=== PATIENT | male | born 1995 | race Hispanic/Latino ===

== ENCOUNTER 2017-05-27 12:45 | Emergency (ER) | payer MEDICAID ==
[2017-05-27 13:34] VITALS: BMI 27.3
[2017-05-27 13:55] LABS: BASO # 0.02 K/mm3 (0.0-2.0); BASO % 0.3 % (0.0-3.0); EOS % 0.5 % (1.5-5.0); GRAN # 4.51 (1.4-6.5); GRAN % 60.8 % (50.0-68.0); HEMATOCRIT 46.7 % (42.0-52.0); LYMPH # 2.2 (1.2-3.4); LYMPH % 30.1 % (22.0-35.0); MEAN CORPUSCULAR HEMOGLOBIN 31.4 pg (25.0-35.0); MEAN CORPUSCULAR HGB CONC 34.9 g/dl (31.0-37.0); MEAN PLATELET VOLUME 10.1 fl (7.0-11.0); MONO # 0.6 (0.1-0.6); MONO % 8.3 % (1.0-6.0); RED CELL DISTRIBUTION WIDTH 13.2 % (11.5-14.5); WHITE BLOOD COUNT 7.4 10^3/ul (4.5-11.0)
[2017-05-27 14:04] LABS: ALB/GLOB RATIO 1.5 (1.1-1.8); ALKALINE PHOSPHATASE 69 U/L (38-126); ALT/SGPT 39 U/L (7-56); AST/SGOT 24 U/L (17-59); BILIRUBIN,TOTAL 1.1 mg/dL (0.2-1.3); BLOOD UREA NITROGEN 13 mg/dL (7-21); CALCIUM 10.4 mg/dL (8.4-10.5); CARBON DIOXIDE 23 mmol/L (21-33); CHLORIDE 101 mmol/L (98-107); GFR AFRICAN-AMERICAN > 60; GLUCOSE,RANDOM 103 mg/dL (70-110); POTASSIUM 4.3 mmol/L (3.6-5.0); SODIUM 142 mmol/L (132-148); TOTAL PROTEIN 8.5 g/dL (5.8-8.3)
--- NOTE | 2017-05-27 14:37 | RAD ---
HISTORY: PES eval COMPARISON: No prior. FINDINGS: LUNGS: No active pulmonary disease. PLEURA: No significant pleural effusion identified, no pneumothorax apparent. CARDIOVASCULAR: Normal. OSSEOUS STRUCTURES: No significant abnormalities. VISUALIZED UPPER ABDOMEN: Normal. OTHER FINDINGS: None. IMPRESSION: No active disease.
[2017-05-27 15:12] LABS: URINE BILIRUBIN SMALL (NEGATIVE); URINE BLOOD NEGATIVE (NEGATIVE); URINE GLUCOSE (UA) NEGATIVE (NEGATIVE); URINE KETONE 15 mg/dL (NEGATIVE); URINE LEUKOCYTE ESTERASE NEGATIVE Leu/uL (NEGATIVE); URINE PROTEIN TRACE mg/dL (<30 mg/dL); URINE UROBILINOGEN 0.2 E.U./dL (<1 E.U./dL)
[2017-05-27 15:28] LABS: URINE APPEARANCE CLEAR (CLEAR); URINE COLOR YELLOW (YELLOW)
[2017-05-27 16:18] LABS: URINE BACTERIA MOD (NEG); URINE EPITHELIAL CELLS 0 - 2 /hpf (0-5); URINE RBC 0 - 2 /hpf (0-2); URINE WBC 0 - 2 /hpf (0-6)
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
--- NOTE | 2017-05-27 21:50 | CARD ---
APPROVED REPORT EKG Measurement Heart [id number] [place] 140P-45 [id number] <Conclusion> Unusual P axis, possible ectopic atrial rhythm Abnormal QRS-T angle, consider primary T wave abnormality Abnormal ECG
[2017-05-28 06:30] VITALS: RESP 18; TEMP 97.8
[2017-05-28 08:38] VITALS: BP 125/85; PULSE 98; O2SAT 97
--- NOTE | 2017-05-28 17:11 | CP.PCM.PCO ---
Addendum Addendum: 05/28/17 17:10 this comic writer attempted to speak to the pt, pt was deeply sleeping s/p IM, pt was screened and was accepted by [facility].
--- NOTE | 2017-05-28 22:08 | CARD ---
APPROVED REPORT EKG Measurement Heart [id number] <Conclusion> Unusual P axis, possible ectopic atrial rhythm Abnormal ECG
== END 2017-05-28 09:02 | disposition short-term general hospital (02) ==
LOC: ED 12:45
DX: F25.9 Schizoaffective disorder, unspecified (principal)
CPT/HCPCS: 71010; 80053; 80320; 80324; 80329; 80345; 80346; 80349; 80353; 80358; 80361; 81001; 83992; 85025; 90791; 93005; 96372; 99285; J1630; J2060

== ENCOUNTER 2017-09-26 21:37 | Inpatient (IN) | payer MEDICAID ==
[2017-09-26 21:37] VITALS: BMI 27.3
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
[2017-09-26 22:51] LABS: BASO # 0.02 K/mm3 (0.0-2.0); BASO % 0.2 % (0.0-3.0); EOS # 0.3 (0.0-0.7); EOS % 3.1 % (1.5-5.0); GRAN # 3.48 (1.4-6.5); GRAN % 38.2 % (50.0-68.0); HEMOGLOBIN 15.8 g/dL (14.0-18.0); LYMPH # 4.4 (1.2-3.4); LYMPH % 48.4 % (22.0-35.0); MEAN CELL VOLUME 94.1 fl (80.0-105.0); MEAN CORPUSCULAR HEMOGLOBIN 32.3 pg (25.0-35.0); MEAN CORPUSCULAR HGB CONC 34.3 g/dl (31.0-37.0); MEAN PLATELET VOLUME 10.2 fl (7.0-11.0); MONO # 0.9 (0.1-0.6); MONO % 10.1 % (1.0-6.0); RBC 4.89 10^6/uL (3.5-6.1); RED CELL DISTRIBUTION WIDTH 13.5 % (11.5-14.5); WHITE BLOOD COUNT 9.1 10^3/ul (4.5-11.0)
[2017-09-26 23:01] LABS: ALB/GLOB RATIO 1.3 (1.1-1.8); ALBUMIN 4.5 g/dL (3.0-4.8); ALT/SGPT 36 U/L (7-56); AST/SGOT 33 U/L (17-59); BLOOD UREA NITROGEN 12 mg/dL (7-21); CALCIUM 10.4 mg/dL (8.4-10.5); GFR AFRICAN-AMERICAN > 60; GFR NON-AFRICAN AMERICAN > 60
[2017-09-26 23:02] LABS: ACETAMINOPHEN < 10.0 ug/ml (10.0-20.0); SALICYLATE < 1 mg/dL (2.0-20.0)
[2017-09-27 00:29] LABS: URINE BILIRUBIN NEGATIVE (NEGATIVE); URINE BLOOD NEGATIVE (NEGATIVE); URINE GLUCOSE (UA) NEGATIVE (NEGATIVE); URINE LEUKOCYTE ESTERASE NEGATIVE Leu/uL (NEGATIVE); URINE PROTEIN NEGATIVE mg/dL (<30 mg/dL); URINE UROBILINOGEN 0.2 E.U./dL (<1 E.U./dL)
[2017-09-27 00:30] LABS: URINE APPEARANCE CLEAR (CLEAR); URINE COLOR YELLOW (YELLOW)
[2017-09-27 00:44] LABS: BARBITURATES, UR NEGATIVE (NEGATIVE); BENZODIAZEPINES, UR NEGATIVE (NEGATIVE); OPIATES, UR NEGATIVE (NEGATIVE); PHENCYCLIDINE, UR NEGATIVE (NEGATIVE)
[2017-09-27] MEDS ORDERED: Divalproex 250 mg DR (BID formulation) PO STA (01:40)
[2017-09-27] MEDS ORDERED: Magnesium Hydroxide Susp 30 ml UD PO PRN ×2 (01:55→02:45)
[2017-09-27] MEDS ORDERED: Alum-Mag Hydrox-Simethicone Susp (30 mL) PO PRN ×2 (01:55→02:45)
[2017-09-27] MEDS ORDERED: DiphenhydrAMINE 50 mg/ml Inj IM PRN ×2 (01:58→13:15)
--- NOTE | 2017-09-27 04:41 | PCM.BM ---
<Ana De La O - Last Filed: 09/27/17 04:38> Treatment Plan Problems - Problems identified on initial assessmt High Risk: Violence Date Initiated: 09/27/17 Time Initiated: 01:45 Assessment reference: NA Status: Active Altered Thought Process Date Initiated: 09/27/17 Time Initiated: 01:45 Assessment reference: NA Status: Active Medication nonadherence Date Initiated: 09/27/17 Time Initiated: :45 Assessment reference: NA Status: Active Defensive Coping Date Initiated: 09/27/17 Time Initiated: :45 Assessment reference: NA Status: Active Treatment assets and liabiliti Patient Assests: self-reliant, ADL independent, physically healthy Patient Liabilities: poor support system, relationship conflicts - Milieu Protocol Maintain good personal hygiene: daily Encourage regular showers, daily Remind patient to perform daily oral care, daily Assist patient to perform ADL's Conduct patient checks and document Observation sheet: Q15 minutes Maintain personal safety: every shift Educate patient to report safety concerns to staff, every shift Monitor environment for contraband/sharps Medication safety: Monitor for expected outcome, potential side effects: every shift, Assess barriers to learning: every shift, Assess readiness for medication education: every shift Discharge/Continuing Care - Education Needs Education Needs: Patient Medication, Patient Diagnosis/Disease Process, Patient Coping Skills, Patient Anger Management skills, Patient Community resources, Patient Activities of Daily Living, Patient Nutrition, Patient Health Practices/ Safety, Patient Personal Hygiene/Grooming, Patient Aftercare Safety Plan - Discharge Discharge Criteria: Tolerates medication w/o severe side effects, Free of Suicidal thoughts, Free of Homicidal thoughts, Free of paranoid thoughts, Free of agitation, Normal sleep pattern, Ability to care for self <Arlet Ford - Last Filed: 09/27/17 10:58> - Diagnosis (1) Bipolar disorder Status: Acute Interventions: Psychoeducation Psychopharmacology/adjustment of medications as needed/ monitoring possible side effects Monitor blood level of mood stabilizers Evaluate pt on daily basis Compliance with medications and follow up appointments Suicide and homicide risk assessment and prevention, coping strategies, safety plan Relapse prevention Reduction of symptoms Improve functional status Family involvement As outpatient: cognitive behavioral therapy 09/27/17 10:58 <Christina Hernandez - Last Filed: 09/27/17 16:56> Family Contact Family involvement: Famliy/SO not involved Family contact: Patient declines to allow family contact at present
--- NOTE | 2017-09-27 08:10 | RAD ---
HISTORY: pes COMPARISON: 05/27/2017. FINDINGS: LUNGS: The lungs are well inflated and clear. PLEURA: No significant pleural effusion identified, no pneumothorax apparent. CARDIOVASCULAR: Normal. OSSEOUS STRUCTURES: No significant abnormalities. VISUALIZED UPPER ABDOMEN: Normal. OTHER FINDINGS: None. IMPRESSION: No active pulmonary disease.
[2017-09-27 08:26] LABS: GLUCOSE,FASTING 90 mg/dL (65-110); HDL CHOLESTEROL 36 mg/dL (29-60)
[2017-09-27 08:37] LABS: LDL CHOLESTEROL 82 mg/dL (0-129)
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
--- NOTE | 2017-09-27 10:01 | CARD ---
APPROVED REPORT EKG Measurement Heart [id number] ND [id number] [id number] <Conclusion> Sinus rhythm with premature supraventricular complexes Otherwise normal ECG
[2017-09-27] MEDS: Divalproex 250 mg DR (BID formulation) PO SCH ×2 (10:10→21:02)
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
[2017-09-28] MEDS: Pantoprazole 20 mg EC Tab PO SCH (06:49)
--- NOTE | 2017-09-28 09:32 | PCM.PYCHPN ---
Psychiatric Progress Note - Psychiatric Progress Note Patient seen today, length of contact: 25 min Problems Identified/Issues Discussed: I reviewed assessment and recent notes. I attempted to interview patient at bedside. He appears unkempt, preoccupied and disengaged. He is extremely reluctant to respond to my questioning though it is evident that he is awake. Flatly states "making me sick" but will not elaborate further even with repeat questioning. Patient doesn't appear to be in any distress. Patient does generally appear evasive, paranoid and irritable. Staff notes appear to confirm this, they indicate that patient has been oppositional and difficult. Has required redirection for intrusive and agitated behavior. Remains unpredictable with poor insight and judgment. Diagnostic Results: Schizoaffective Disorder Bipolar Type Learning Disorder unspecified Mental Status Examination - Cognitive Function Orientation: Person, Place, Situation, Time Attention: Poor Concentration: Poor - Mood Mood: Other ("making me sick") - Affect Affect: Other (irritable, unwilling to participate) - Formal Thought Process Formal Thought Process: Paranoia, Circumstantial - Suicidal Ideation Suicidal Ideation: No - Homicidal Ideation Homicidal Ideation: No Goal/Treatment Plan - Goal/Treatment Plan Progress Toward Problem(s) and Goals/Treatment Plan: c/w current tx and plan No new weekend labs thus far Vitals reviewed and noted below: Selected Entries 09/27/17 09/27/17 09/27/17 01:40 02:53 16:03 Temperature 98.2 F Pulse Rate 95 H 91 H Pulse Rate [ 95 H Brachial] Respiratory 16 Rate Blood Pressure 132/90 130/86
[2017-09-28] MEDS: Divalproex 250 mg DR (BID formulation) PO SCH ×2 (09:48→20:59)
[2017-09-29 06:57] VITALS: RESP 20
[2017-09-29] MEDS: Pantoprazole 20 mg EC Tab PO SCH (07:17)
--- NOTE | 2017-09-29 09:33 | PCM.PYCHPN ---
Psychiatric Progress Note - Psychiatric Progress Note Patient seen today, length of contact: 25 min Patient Chief Complaint: "doesn't like to take psychiatric medications because it makes it hard for me to see reality the way it is and that's why I like ambien and benzos" Problems Identified/Issues Discussed: I reviewed recent notes. I attempted to interview patient at bedside and was a little more successful getting some responses today. He still appears unkempt, internally preoccupied and oddly related. Abruptly states that he "doesn't like to take psychiatric medications because it makes it hard for me to see reality the way it is and that's why I like ambien and benzos". Patient also reports that his medications decrease his appetite "they take food out of my belly". Patient is disorganized and paranoid. Doesn't appear to be entirely reliable/ consistent regarding his responses. He denies hallucinations and he isn't responding to internal stimuli during my visit. Patient still seems evasive today but less irritable. Staff notes appear to confirm this, they indicate that patient was a little less disruptive yesterday. He was visible on the unit and tolerated a movie last night with others. Patient did refuse to complete social work assessment. In general he remains unpredictable with poor insight and judgment. Diagnostic Results: Schizoaffective Disorder Bipolar Type Learning Disorder unspecified Mental Status Examination - Cognitive Function Orientation: Person, Place, Situation, Time Attention: Poor Concentration: Poor - Mood Mood: Other ( "doesn't like to take psychiatric medications because it makes it hard for me to see reality the way it is and that's why I like ambien and benzos ") - Affect Affect: Other (internally preoccupied and oddly related) - Formal Thought Process Formal Thought Process: Paranoia, Circumstantial - Suicidal Ideation Suicidal Ideation: No - Homicidal Ideation Homicidal Ideation: No Goal/Treatment Plan - Goal/Treatment Plan Progress Toward Problem(s) and Goals/Treatment Plan: c/w current tx and plan No new weekend labs Vitals reviewed and noted below: Selected Entries 09/29/17 06:56 Temperature 97.9 F Pulse Rate 87 Respiratory 20 Rate Blood Pressure 121/79
[2017-09-29] MEDS: Divalproex 250 mg DR (BID formulation) PO SCH ×2 (10:07→21:17)
[2017-09-30 07:00] VITALS: TEMP 97.6
[2017-09-30] MEDS: Divalproex 250 mg DR (BID formulation) PO SCH ×3 (08:56→21:04)
[2017-09-30] MEDS: Pantoprazole 20 mg EC Tab PO SCH (08:56)
--- NOTE | 2017-09-30 14:08 | PCM.PYCHPN ---
Psychiatric Progress Note - Psychiatric Progress Note Patient seen today, length of contact: 25 min Patient Chief Complaint: "My father has been bullying me, he wants to mess up my life and make me miserable like him" Problems Identified/Issues Discussed: Patient is a 22 year old single male of average height and slim of build, neatly groomed and appearing his stated age seen today in treatment team. He has a long history of mental illness starting at age 14 with many hospitalizations and non compliance with follow up care. He lives with his father and is disabled due to his mental illness. Patient was initially seen in [facility] emergency room having been brought in by the police because of an altercation with his father. Patient was disorganized, labile, appeared to be responding to internal stimuli, laughing inappropriately and sexually preoccupied. He was last hospitalized at [place] involuntarily for 2 months and has been home and noncompliant with medication since. He signed voluntarily into the unit. Patient is seen in the common area of the unit. He is less irritable but is tangential and random in conversation. Indicates that he wants to sign a 48 hour notice but when it is explained to him that he must be screened by [facility] as a result of this decides to stay. He has been compliant with medication and when I talk with him about increasing the Risperdal and getting a depakote level to determine if this is in range he advises me to "bailey the medication up Ii need it". He is somewhat bizarre and labile, refuses cogentin because it "thins my blood". Denies side effects and AIMS exam is negative. Is planning to return to live with father at discharge. Medical Problems: Patient has had many inpatient admissions both involuntary and voluntary. He does not follow up with medications or treatment after hospitalizations. Diagnostic Results: Most Recent Lab Values WBC 9.1 10^3/ul (4.5-11.0) D 09/26/17 21:50 RBC 4.89 10^6/uL (3.5-6.1) 09/26/17 21:50 Hgb 15.8 g/dL (14.0-18.0) 09/26/17 21:50 Hct 46.0 % (42.0-52.0) 09/26/17 21:50 MCV 94.1 fl (80.0-105.0) D 09/26/17 21:50 MCH 32.3 pg (25.0-35.0) 09/26/17 21:50 MCHC 34.3 g/dl (31.0-37.0) 09/26/17 21:50 RDW 13.5 % (11.5-14.5) 09/26/17 21:50 Plt Count 303 10^3/uL (120.0-450.0) 09/26/17 21:50 MPV 10.2 fl (7.0-11.0) 09/26/17 21:50 Gran % 38.2 % (50.0-68.0) L 09/26/17 21:50 Lymph % (Auto) 48.4 % (22.0-35.0) H 09/26/17 21:50 [place] % (Auto) 10.1 % (1.0-6.0) H 09/26/17 21:50 Eos % (Auto) 3.1 % (1.5-5.0) 09/26/17 21:50 Baso % (Auto) 0.2 % (0.0-3.0) 09/26/17 21:50 Gran # 3.48 (1.4-6.5) 09/26/17 21:50 Lymph # (Auto) 4.4 (1.2-3.4) H 09/26/17 21:50 [place] # (Auto) 0.9 (0.1-0.6) H 09/26/17 21:50 Eos # (Auto) 0.3 (0.0-0.7) 09/26/17 21:50 Baso # (Auto) 0.02 K/mm3 (0.0-2.0) 09/26/17 21:50 Sodium 140 mmol/L (132-148) 09/26/17 21:50 Potassium 4.7 mmol/L (3.6-5.0) 09/26/17 21:50 Chloride 102 mmol/L (98-107) 09/26/17 21:50 Carbon Dioxide 28 mmol/L (21-33) 09/26/17 21:50 Anion Gap 15 (10-20) 09/26/17 21:50 BUN 12 mg/dL (7-21) 09/26/17 21:50 Creatinine 1.0 mg/dl (0.8-1.5) 09/26/17 21:50 Est GFR ( Amer) > 60 09/26/17 21:50 Est GFR (Non-Af Amer) > 60 09/26/17 21:50 Random Glucose 93 mg/dL (70-110) 09/26/17 21:50 Fasting Glucose 90 mg/dL (65-110) 09/27/17 07:30 Calcium 10.4 mg/dL (8.4-10.5) 09/26/17 21:50 Total Bilirubin 0.6 mg/dL (0.2-1.3) 09/26/17 21:50 AST 33 U/L (17-59) 09/26/17 21:50 ALT 36 U/L (7-56) 09/26/17 21:50 Alkaline Phosphatase 55 U/L (38-126) 09/26/17 21:50 Total Protein 8.0 g/dL (5.8-8.3) 09/26/17 21:50 Albumin 4.5 g/dL (3.0-4.8) 09/26/17 21:50 Globulin 3.5 gm/dL 09/26/17 21:50 Albumin/Globulin Ratio 1.3 (1.1-1.8) 09/26/17 21:50 Triglycerides 87 mg/dL (35-160) 09/27/17 07:30 Cholesterol 132 mg/dL (130-200) 09/27/17 07:30 LDL Cholesterol Direct 82 mg/dL (0-129) 09/27/17 07:30 HDL Cholesterol 36 mg/dL (29-60) 09/27/17 07:30 TSH 3rd Generation 0.75 mIU/mL (0.46-4.68) 09/27/17 07:30 Urine Color Yellow (YELLOW) 09/27/17 00:00 Urine Appearance Clear (CLEAR) 09/27/17 00:00 Urine pH 6.0 (4.7-8.0) 09/27/17 00:00 Ur Specific [place] 1.020 (1.005-1.035) 09/27/17 00:00 Urine Protein Negative mg/dL (<30 mg/dL) 09/27/17 00:00 Urine Glucose (UA) Negative mg/dL (NEGATIVE) 09/27/17 00:00 Urine Ketones Negative mg/dL (NEGATIVE) 09/27/17 00:00 Urine Blood Negative (NEGATIVE) 09/27/17 00:00 Urine Nitrate Negative (NEGATIVE) 09/27/17 00:00 Urine Bilirubin Negative (NEGATIVE) 09/27/17 00:00 Urine Urobilinogen 0.2 E.U./dL (<1 E.U./dL) 09/27/17 00:00 Ur Leukocyte Esterase Negative [place]/uL (NEGATIVE) 09/27/17 00:00 Salicylates < 1 mg/dL (2.0-20.0) L 09/26/17 21:50 Urine Opiates Screen Negative (NEGATIVE) 09/27/17 00:00 Urine Methadone Screen Negative (NEGATIVE) 09/27/17 00:00 Acetaminophen < 10.0 ug/ml (10.0-20.0) L 09/26/17 21:50 Ur Barbiturates Screen Negative (NEGATIVE) 09/27/17 00:00 Ur Phencyclidine Scrn Negative (NEGATIVE) 09/27/17 00:00 Ur Amphetamines Screen Negative (NEGATIVE) 09/27/17 00:00 U Benzodiazepines Scrn Negative (NEGATIVE) 09/27/17 00:00 U Oth Cocaine Metabols Negative (NEGATIVE) 09/27/17 00:00 U Cannabinoids Screen Negative (NEGATIVE) 09/27/17 00:00 Alcohol, Quantitative < 10 mg/dL (0-10) 09/26/17 21:50 RPR Nonreactive (NONREACTIVE) 09/27/17 07:30 Temp Pulse Resp BP Pulse Ox 97.6 F 60 20 121/76 100 09/30/17 06:59 09/30/17 06:59 09/30/17 06:59 09/30/17 06:59 09/27/17 01:00 Medication Change: Yes (Risperdal increased) Medical Record Reviewed: Yes Consults ordered or reviewed: Medical consult per Dr Hull reviewed thank you Mental Status Examination - Cognitive Function Orientation: Person, Place, Situation, Time Attention: Poor Concentration: Poor - Mood Mood: Other ( "doesn't like to take psychiatric medications because it makes it hard for me to see reality the way it is and that's why I like ambien and benzos ") - Affect Affect: Other (internally preoccupied and oddly related) - Formal Thought Process Formal Thought Process: Paranoia, Circumstantial - Suicidal Ideation Suicidal Ideation: No - Homicidal Ideation Homicidal Ideation: No Goal/Treatment Plan - Goal/Treatment Plan Progress Toward Problem(s) and Goals/Treatment Plan: Milieu/structure/supportive therapy Medical consult appreciated, see medical team note for more detailed info SW consultation for discharge plan and social issues Med management Family involvement Follow up on labs Will monitor closely evaluation for d/c planning Pt was educated about risk/benefits and alternatives of medications, coping strategies (safety plan, suicide prevention), relapse prevention, importance of follow up with psychiatrist and therapist, stay away from drugs/alcohol/smoking Medication Rationale: Depakote DR 500mg one po AM and HS for mood lability Risperdal 1mg one po AM and HS to be tapered up for psychosis Ambien 10mg one po HS for sleep PRNs of Ativan, Benedryl, and Haldol po and IM for agitation
[2017-09-30 22:45] VITALS: O2SAT 99
[2017-10-01] MEDS: Divalproex 250 mg DR (BID formulation) PO SCH ×2 (09:27→21:29)
[2017-10-01] MEDS: Pantoprazole 20 mg EC Tab PO SCH (09:28)
--- NOTE | 2017-10-01 13:23 | PCM.PYCHPN ---
Psychiatric Progress Note - Psychiatric Progress Note Patient seen today, length of contact: 25 min Patient Chief Complaint: "I want to go home" Problems Identified/Issues Discussed: Patient is a 22 year old single male of average height and slim of build, neatly groomed and appearing his stated age seen today in treatment team. He has a long history of mental illness starting at age 14 with many hospitalizations and non compliance with follow up care. He lives with his father and is disabled due to his mental illness. Patient was initially seen in [facility] emergency room having been brought in by the police because of an altercation with his father. Patient was disorganized, labile, appeared to be responding to internal stimuli, laughing inappropriately and sexually preoccupied. He was last hospitalized at [place] involuntarily for 2 months and has been home and noncompliant with medication since. He signed voluntarily into the unit. Patient is seen in the common area of the unit. Depakote level is .55 today. Depakote increased. He is not irritable today but is silly and overtly sexually preoccupied though he is easy to redirect. He continues delusional, and conversation is rambling. He requests to be discharged and when I do not agree signs a 48 hour hour notice. It was explained to him that the screeners will be called to assess him and patient understands. He has no insight and poor judgment, is unable to stay with a conversation or idea for long and is not able to tolerate groups. He is childlike at times. He continues to laugh inappropriately. He denies any side effects and AIMS exam is negative. Medical Problems: Patient is healthy Diagnostic Results: Most Recent Lab Values WBC 9.1 10^3/ul (4.5-11.0) D 09/26/17 21:50 RBC 4.89 10^6/uL (3.5-6.1) 09/26/17 21:50 Hgb 15.8 g/dL (14.0-18.0) 09/26/17 21:50 Hct 46.0 % (42.0-52.0) 09/26/17 21:50 MCV 94.1 fl (80.0-105.0) D 09/26/17 21:50 MCH 32.3 pg (25.0-35.0) 09/26/17 21:50 MCHC 34.3 g/dl (31.0-37.0) 09/26/17 21:50 RDW 13.5 % (11.5-14.5) 09/26/17 21:50 Plt Count 303 10^3/uL (120.0-450.0) 09/26/17 21:50 MPV 10.2 fl (7.0-11.0) 09/26/17 21:50 Gran % 38.2 % (50.0-68.0) L 09/26/17 21:50 Lymph % (Auto) 48.4 % (22.0-35.0) H 09/26/17 21:50 [place] % (Auto) 10.1 % (1.0-6.0) H 09/26/17 21:50 Eos % (Auto) 3.1 % (1.5-5.0) 09/26/17 21:50 Baso % (Auto) 0.2 % (0.0-3.0) 09/26/17 21:50 Gran # 3.48 (1.4-6.5) 09/26/17 21:50 Lymph # (Auto) 4.4 (1.2-3.4) H 09/26/17 21:50 [place] # (Auto) 0.9 (0.1-0.6) H 09/26/17 21:50 Eos # (Auto) 0.3 (0.0-0.7) 09/26/17 21:50 Baso # (Auto) 0.02 K/mm3 (0.0-2.0) 09/26/17 21:50 Sodium 140 mmol/L (132-148) 09/26/17 21:50 Potassium 4.7 mmol/L (3.6-5.0) 09/26/17 21:50 Chloride 102 mmol/L (98-107) 09/26/17 21:50 Carbon Dioxide 28 mmol/L (21-33) 09/26/17 21:50 Anion Gap 15 (10-20) 09/26/17 21:50 BUN 12 mg/dL (7-21) 09/26/17 21:50 Creatinine 1.0 mg/dl (0.8-1.5) 09/26/17 21:50 Est GFR ( Amer) > 60 09/26/17 21:50 Est GFR (Non-Af Amer) > 60 09/26/17 21:50 Random Glucose 93 mg/dL (70-110) 09/26/17 21:50 Fasting Glucose 90 mg/dL (65-110) 09/27/17 07:30 Calcium 10.4 mg/dL (8.4-10.5) 09/26/17 21:50 Total Bilirubin 0.6 mg/dL (0.2-1.3) 09/26/17 21:50 AST 33 U/L (17-59) 09/26/17 21:50 ALT 36 U/L (7-56) 09/26/17 21:50 Alkaline Phosphatase 55 U/L (38-126) 09/26/17 21:50 Total Protein 8.0 g/dL (5.8-8.3) 09/26/17 21:50 Albumin 4.5 g/dL (3.0-4.8) 09/26/17 21:50 Globulin 3.5 gm/dL 09/26/17 21:50 Albumin/Globulin Ratio 1.3 (1.1-1.8) 09/26/17 21:50 Triglycerides 87 mg/dL (35-160) 09/27/17 07:30 Cholesterol 132 mg/dL (130-200) 09/27/17 07:30 LDL Cholesterol Direct 82 mg/dL (0-129) 09/27/17 07:30 HDL Cholesterol 36 mg/dL (29-60) 09/27/17 07:30 TSH 3rd Generation 0.75 mIU/mL (0.46-4.68) 09/27/17 07:30 Urine Color Yellow (YELLOW) 09/27/17 00:00 Urine Appearance Clear (CLEAR) 09/27/17 00:00 Urine pH 6.0 (4.7-8.0) 09/27/17 00:00 Ur Specific [place] 1.020 (1.005-1.035) 09/27/17 00:00 Urine Protein Negative mg/dL (<30 mg/dL) 09/27/17 00:00 Urine Glucose (UA) Negative mg/dL (NEGATIVE) 09/27/17 00:00 Urine Ketones Negative mg/dL (NEGATIVE) 09/27/17 00:00 Urine Blood Negative (NEGATIVE) 09/27/17 00:00 Urine Nitrate Negative (NEGATIVE) 09/27/17 00:00 Urine Bilirubin Negative (NEGATIVE) 09/27/17 00:00 Urine Urobilinogen 0.2 E.U./dL (<1 E.U./dL) 09/27/17 00:00 Ur Leukocyte Esterase Negative [place]/uL (NEGATIVE) 09/27/17 00:00 Salicylates < 1 mg/dL (2.0-20.0) L 09/26/17 21:50 Urine Opiates Screen Negative (NEGATIVE) 09/27/17 00:00 Urine Methadone Screen Negative (NEGATIVE) 09/27/17 00:00 Acetaminophen < 10.0 ug/ml (10.0-20.0) L 09/26/17 21:50 Ur Barbiturates Screen Negative (NEGATIVE) 09/27/17 00:00 Ur Phencyclidine Scrn Negative (NEGATIVE) 09/27/17 00:00 Ur Amphetamines Screen Negative (NEGATIVE) 09/27/17 00:00 U Benzodiazepines Scrn Negative (NEGATIVE) 09/27/17 00:00 U Oth Cocaine Metabols Negative (NEGATIVE) 09/27/17 00:00 U Cannabinoids Screen Negative (NEGATIVE) 09/27/17 00:00 Alcohol, Quantitative < 10 mg/dL (0-10) 09/26/17 21:50 RPR Nonreactive (NONREACTIVE) 09/27/17 07:30 Temp Pulse Resp BP Pulse Ox 97.6 F 60 20 121/76 100 09/30/17 06:59 09/30/17 06:59 09/30/17 06:59 09/30/17 06:59 09/27/17 01:00 Temp Pulse Resp BP Pulse Ox 97.6 F 104 H 20 131/78 99 09/30/17 06:59 09/30/17 16:00 09/30/17 06:59 09/30/17 16:00 09/30/17 16:00 Medication Change: Yes (Increase Depakote to stabilize mood) Medical Record Reviewed: Yes Consults ordered or reviewed: Medical consult per Dr Hull reviewed thank you Mental Status Examination - Cognitive Function Orientation: Person, Place, Situation, Time Attention: Poor Concentration: Poor - Mood Mood: Other ( "doesn't like to take psychiatric medications because it makes it hard for me to see reality the way it is and that's why I like ambien and benzos ") - Affect Affect: Other (internally preoccupied and oddly related) - Formal Thought Process Formal Thought Process: Paranoia, Circumstantial - Suicidal Ideation Suicidal Ideation: No - Homicidal Ideation Homicidal Ideation: No Goal/Treatment Plan - Goal/Treatment Plan Progress Toward Problem(s) and Goals/Treatment Plan: Milieu/structure/supportive therapy Medical consult appreciated, see medical team note for more detailed info consultation for discharge plan and social issues Med management Family involvement Follow up on labs Will monitor closely evaluation for d/c planning Pt was educated about risk/benefits and alternatives of medications, coping strategies (safety plan, suicide prevention), relapse prevention, importance of follow up with psychiatrist and therapist, stay away from drugs/alcohol/smoking Medication Rationale: Depakote DR 500mg one po AM and HS for mood lability Risperdal 1mg one po AM and HS to be tapered up for psychosis Ambien 10mg one po HS for sleep PRNs of Ativan, Benedryl, and Haldol po and IM for agitation
[2017-10-02] MEDS: Divalproex 250 mg DR (BID formulation) PO SCH ×2 (09:43→21:10)
[2017-10-02] MEDS: Pantoprazole 20 mg EC Tab PO SCH (09:44)
--- NOTE | 2017-10-02 13:02 | PCM.PYCHPN ---
Psychiatric Progress Note - Psychiatric Progress Note Patient seen today, length of contact: 25 min Patient Chief Complaint: "I don't have to do anything anymore. I am going to medical [place] no matter what" Problems Identified/Issues Discussed: Patient is a 22 year old single male of average height and slim of build, neatly groomed and appearing his stated age seen today in treatment team. He has a long history of mental illness starting at age 14 with many hospitalizations and non compliance with follow up care. He lives with his father and is disabled due to his mental illness. Patient was initially seen in [facility] emergency room having been brought in by the police because of an altercation with his father. Patient was disorganized, labile, appeared to be responding to internal stimuli, laughing inappropriately and sexually preoccupied. He was last hospitalized at [place] involuntarily for 2 months and has been home and noncompliant with medication since. He signed voluntarily into the unit. Patient is seen in his room, as he refuses to come out. Patient was seen by the screener yesterday and is now under involuntary status awaiting a bed at [facility]. He is secluding in his room, however he comes out for meals and is taking his medications without difficulty. He continues labile, irritable and without insight. He is not able to tolerate much interpersonal contact and is sexually preoccupied and inappropriate in conversation. Medical Problems: Patient is healthy Diagnostic Results: Most Recent Lab Values WBC 9.1 10^3/ul (4.5-11.0) D 09/26/17 21:50 RBC 4.89 10^6/uL (3.5-6.1) 09/26/17 21:50 Hgb 15.8 g/dL (14.0-18.0) 09/26/17 21:50 Hct 46.0 % (42.0-52.0) 09/26/17 21:50 MCV 94.1 fl (80.0-105.0) D 09/26/17 21:50 MCH 32.3 pg (25.0-35.0) 09/26/17 21:50 MCHC 34.3 g/dl (31.0-37.0) 09/26/17 21:50 RDW 13.5 % (11.5-14.5) 09/26/17 21:50 Plt Count 303 10^3/uL (120.0-450.0) 09/26/17 21:50 MPV 10.2 fl (7.0-11.0) 09/26/17 21:50 Gran % 38.2 % (50.0-68.0) L 09/26/17 21:50 Lymph % (Auto) 48.4 % (22.0-35.0) H 09/26/17 21:50 [place] % (Auto) 10.1 % (1.0-6.0) H 09/26/17 21:50 Eos % (Auto) 3.1 % (1.5-5.0) 09/26/17 21:50 Baso % (Auto) 0.2 % (0.0-3.0) 09/26/17 21:50 Gran # 3.48 (1.4-6.5) 09/26/17 21:50 Lymph # (Auto) 4.4 (1.2-3.4) H 09/26/17 21:50 [place] # (Auto) 0.9 (0.1-0.6) H 09/26/17 21:50 Eos # (Auto) 0.3 (0.0-0.7) 09/26/17 21:50 Baso # (Auto) 0.02 K/mm3 (0.0-2.0) 09/26/17 21:50 Sodium 140 mmol/L (132-148) 09/26/17 21:50 Potassium 4.7 mmol/L (3.6-5.0) 09/26/17 21:50 Chloride 102 mmol/L (98-107) 09/26/17 21:50 Carbon Dioxide 28 mmol/L (21-33) 09/26/17 21:50 Anion Gap 15 (10-20) 09/26/17 21:50 BUN 12 mg/dL (7-21) 09/26/17 21:50 Creatinine 1.0 mg/dl (0.8-1.5) 09/26/17 21:50 Est GFR ( Amer) > 60 09/26/17 21:50 Est GFR (Non-Af Amer) > 60 09/26/17 21:50 Random Glucose 93 mg/dL (70-110) 09/26/17 21:50 Fasting Glucose 90 mg/dL (65-110) 09/27/17 07:30 Calcium 10.4 mg/dL (8.4-10.5) 09/26/17 21:50 Total Bilirubin 0.6 mg/dL (0.2-1.3) 09/26/17 21:50 AST 33 U/L (17-59) 09/26/17 21:50 ALT 36 U/L (7-56) 09/26/17 21:50 Alkaline Phosphatase 55 U/L (38-126) 09/26/17 21:50 Total Protein 8.0 g/dL (5.8-8.3) 09/26/17 21:50 Albumin 4.5 g/dL (3.0-4.8) 09/26/17 21:50 Globulin 3.5 gm/dL 09/26/17 21:50 Albumin/Globulin Ratio 1.3 (1.1-1.8) 09/26/17 21:50 Triglycerides 87 mg/dL (35-160) 09/27/17 07:30 Cholesterol 132 mg/dL (130-200) 09/27/17 07:30 LDL Cholesterol Direct 82 mg/dL (0-129) 09/27/17 07:30 HDL Cholesterol 36 mg/dL (29-60) 09/27/17 07:30 TSH 3rd Generation 0.75 mIU/mL (0.46-4.68) 09/27/17 07:30 Urine Color Yellow (YELLOW) 09/27/17 00:00 Urine Appearance Clear (CLEAR) 09/27/17 00:00 Urine pH 6.0 (4.7-8.0) 09/27/17 00:00 Ur Specific [place] 1.020 (1.005-1.035) 09/27/17 00:00 Urine Protein Negative mg/dL (<30 mg/dL) 09/27/17 00:00 Urine Glucose (UA) Negative mg/dL (NEGATIVE) 09/27/17 00:00 Urine Ketones Negative mg/dL (NEGATIVE) 09/27/17 00:00 Urine Blood Negative (NEGATIVE) 09/27/17 00:00 Urine Nitrate Negative (NEGATIVE) 09/27/17 00:00 Urine Bilirubin Negative (NEGATIVE) 09/27/17 00:00 Urine Urobilinogen 0.2 E.U./dL (<1 E.U./dL) 09/27/17 00:00 Ur Leukocyte Esterase Negative [place]/uL (NEGATIVE) 09/27/17 00:00 Salicylates < 1 mg/dL (2.0-20.0) L 09/26/17 21:50 Urine Opiates Screen Negative (NEGATIVE) 09/27/17 00:00 Urine Methadone Screen Negative (NEGATIVE) 09/27/17 00:00 Acetaminophen < 10.0 ug/ml (10.0-20.0) L 09/26/17 21:50 Ur Barbiturates Screen Negative (NEGATIVE) 09/27/17 00:00 Ur Phencyclidine Scrn Negative (NEGATIVE) 09/27/17 00:00 Ur Amphetamines Screen Negative (NEGATIVE) 09/27/17 00:00 U Benzodiazepines Scrn Negative (NEGATIVE) 09/27/17 00:00 U Oth Cocaine Metabols Negative (NEGATIVE) 09/27/17 00:00 U Cannabinoids Screen Negative (NEGATIVE) 09/27/17 00:00 Alcohol, Quantitative < 10 mg/dL (0-10) 09/26/17 21:50 RPR Nonreactive (NONREACTIVE) 09/27/17 07:30 Temp Pulse Resp BP Pulse Ox 97.6 F 60 20 121/76 100 09/30/17 06:59 09/30/17 06:59 09/30/17 06:59 09/30/17 06:59 09/27/17 01:00 Temp Pulse Resp BP Pulse Ox 97.6 F 104 H 20 131/78 99 09/30/17 06:59 09/30/17 16:00 09/30/17 06:59 09/30/17 16:00 09/30/17 16:00 Temp Pulse Resp BP Pulse Ox 97.6 F 86 20 117/66 99 09/30/17 06:59 10/01/17 16:00 09/30/17 06:59 10/01/17 16:00 09/30/17 16:00 Medication Change: No Medical Record Reviewed: Yes Consults ordered or reviewed: Medical consult per Dr Hull reviewed thank you Mental Status Examination - Cognitive Function Orientation: Person, Place, Situation, Time Attention: Poor Concentration: Poor - Mood Mood: Other ( "doesn't like to take psychiatric medications because it makes it hard for me to see reality the way it is and that's why I like ambien and benzos ") - Affect Affect: Other (internally preoccupied and oddly related) - Formal Thought Process Formal Thought Process: Paranoia, Circumstantial - Suicidal Ideation Suicidal Ideation: No - Homicidal Ideation Homicidal Ideation: No Goal/Treatment Plan - Goal/Treatment Plan Progress Toward Problem(s) and Goals/Treatment Plan: Milieu/structure/supportive therapy Medical consult appreciated, see medical team note for more detailed info consultation for discharge plan and social issues Med management Family involvement Follow up on labs Will monitor closely evaluation for d/c planning Pt was educated about risk/benefits and alternatives of medications, coping strategies (safety plan, suicide prevention), relapse prevention, importance of follow up with psychiatrist and therapist, stay away from drugs/alcohol/smoking Medication Rationale: Depakote DR 500mg one po AM and HS for mood lability Risperdal 1mg one po AM and HS to be tapered up for psychosis Ambien 10mg one po HS for sleep PRNs of Ativan, Benedryl, and Haldol po and IM for agitation
[2017-10-03] MEDS: Pantoprazole 20 mg EC Tab PO SCH (10:11)
[2017-10-03] MEDS: Divalproex 250 mg DR (BID formulation) PO SCH (10:40)
--- NOTE | 2017-10-03 14:20 | PCM.PYCHPN ---
Psychiatric Progress Note - Psychiatric Progress Note Patient seen today, length of contact: 25 min Patient Chief Complaint: "I knew what to do when I was younger, right now I don't know, I don't think that I like Depakote, I prefer to stay home and relax" Problems Identified/Issues Discussed: Suicide/ homicide prevention, past psychiatric h/o, current psychiatric symptoms , medical problems, risk/benefits and alternatives of medications, medications compliance, coping strategies, substance abuse h/o, relapse prevention, importance of follow up with psychiatrist and therapist, discharge plan. Medical Problems: history of hernia repair Diagnostic Results: 09/26/17 21:50 09/26/17 21:50 Lab Results 10/01/17 07:30: Valproic Acid 55 09/27/17 07:30: Fasting Glucose 90, Triglycerides 87, Cholesterol 132, LDL Cholesterol Direct 82, HDL Cholesterol 36 09/27/17 07:30: RPR Nonreactive 09/27/17 07:30: TSH 3rd Generation 0.75 09/27/17 00:00: Urine Opiates Screen Negative, Urine Methadone Screen Negative, Ur Barbiturates Screen Negative, Ur Phencyclidine Scrn Negative, Ur Amphetamines Screen Negative, U Benzodiazepines Scrn Negative, U Oth Cocaine Metabols Negative, U Cannabinoids Screen Negative 09/27/17 00:00: Urine Color Yellow, Urine Appearance Clear, Urine pH 6.0, Ur Specific [place] 1.020, Urine Protein Negative, Urine Glucose (UA) Negative, Urine Ketones Negative, Urine Blood Negative, Urine Nitrate Negative, Urine Bilirubin Negative, Urine Urobilinogen 0.2, Ur Leukocyte Esterase Negative 09/26/17 21:50: Alcohol, Quantitative < 10 09/26/17 21:50: Salicylates < 1 L, Acetaminophen < 10.0 L 09/26/17 21:50: Sodium 140, Potassium 4.7, Chloride 102, Carbon Dioxide 28, Anion Gap 15, BUN 12, Creatinine 1.0, Est GFR ( Amer) > 60, Est GFR (Non- Af Amer) > 60, Random Glucose 93, Calcium 10.4, Total Bilirubin 0.6, AST 33, ALT 36, Alkaline Phosphatase 55, Total Protein 8.0, Albumin 4.5, Globulin 3.5, Albumin/Globulin Ratio 1.3 09/26/17 21:50: WBC 9.1 D, RBC 4.89, Hgb 15.8, Hct 46.0, MCV 94.1 D, MCH 32.3 , MCHC 34.3, RDW 13.5, Plt Count 303, MPV 10.2, Gran % 38.2 L, Lymph % (Auto) 48.4 H, [place] % (Auto) 10.1 H, Eos % (Auto) 3.1, Baso % (Auto) 0.2, Gran # 3.48, Lymph # (Auto) 4.4 H, [place] # (Auto) 0.9 H, Eos # (Auto) 0.3, Baso # (Auto) 0.02 Vital Signs Temp Pulse Pulse Resp BP Pulse Ox 10/02/17 16:00 106 H 133/85 10/01/17 16:00 86 117/66 09/30/17 16:00 104 H 131/78 99 09/30/17 06:59 97.6 F 60 20 121/76 09/29/17 16:00 112 H 138/88 09/29/17 06:56 97.9 F 87 20 121/79 09/28/17 16:12 110 H 117/77 09/27/17 16:03 91 H 130/86 09/27/17 02:53 95 H 09/27/17 01:40 98.2 F 95 H 16 132/90 09/27/17 01:00 97.8 F 88 18 132/76 100 09/26/17 23:37 98.8 F 79 16 128/76 100 09/26/17 21:51 98.7 F 84 16 98 DSM 5 Symptoms Update: patient was seen and examined, discussed with staff, patient presented to be disorganized, impulsive, majority of the statement did not make any sense, no boundaries, for example when this repairer typewriter had a diagnostic interview with other patients patient came over and said in near proximity to this repairer typewriter. Patient said that he does not want to take any medications, this repairer typewriter educated patient about plan of transfer to [facility], patient said "I prefer to go home and relax there". pt c/o insomnia, this repairer typewriter offered to increase the dose of medication or adjust them, patient said "I refuse, leave everything as it is". As per nursing staff reported, patient is disorganized, did not make much sense , but less irritable, less disruptive, visible in the unit. Patient tolerates medications well, no side effects observed or reported, aims 0 , no EPS. In general he remains unpredictable with poor insight and judgment. Diagnostic Results: Schizoaffective Disorder Bipolar Type Learning Disorder unspecified Medication Change: No Medical Record Reviewed: Yes Consults ordered or reviewed: medical consult appreciated Mental Status Examination - Cognitive Function Orientation: Person, Place, Situation, Time Attention: Poor Concentration: Poor Association: Loose Fund of Knowledge: Poor - Mood Mood: Other (irritable, angry) - Affect Affect: Other (flat, oddly related) - Formal Thought Process Formal Thought Process: Paranoia, Circumstantial, Other (disorganized thoughts) - Suicidal Ideation Suicidal Ideation: No - Homicidal Ideation Homicidal Ideation: No Goal/Treatment Plan - Goal/Treatment Plan Need for Continued Stay: Remain at risks for inpatient hospitalization, Severe depression anxiety, Discharge may exacerbated symptoms, Severe functional impairment Progress Toward Problem(s) and Goals/Treatment Plan: Milieu/structure/supportive therapy Medical consult appreciated Patient was screen by [facility], at present moment patient is awaiting for transfer consultation for discharge plan and social issues Med management Depakote DR 750mg one po AM and HS for mood lability Risperdal will be increased to 3mg one po AM and HS to be tapered up for psychosis Ambien 10mg one po HS for sleep PRNs of Ativan, Benedryl, and Haldol po and IM for agitation Family involvement Follow up on labs Will monitor closely evaluation for d/c planning Pt was educated about risk/benefits and alternatives of medications, coping strategies (safety plan, suicide prevention), relapse prevention, importance of follow up with psychiatrist and therapist, stay away from drugs/alcohol/smoking Medication Rationale: Estimated Date of D/C: 10/07/17
[2017-10-03 16:29] VITALS: BP 116/62; PULSE 68
--- NOTE | 2017-10-04 13:53 | PCM.PYCHDC ---
Mental Status Examination - Mental Status Examination Orientation: Person, Place, Situation, Time Memory: Impaired Mood: Neutral Affect: Other Speech: Soft Attention: Poor Concentration: Poor Association: Loose Fund of Knowledge: Poor Formal Thought Process: Delusions, Paranoia, Flight of ideas, Circumstantial Description of patient's judgement and insight: Patient's judgment is poor, insight is poor, reality testing poor with inappropriate behavior and labile mood and affect. He is illogical in conversation and remains sexually preoccupied. Psychotic Thoughts and Behaviors: Patient denies being suicidal ("I love myself too much"), denies being homicidal , denies the presence of hallucinations delusions or paranoia when asked. However he is preoccupied, inappropriate and paranoid trends are present in his conversation. Suicidal Ideation: No Current Homicidal Ideation?: No Discharge Summary - Discharge Note Reason for Hospitalization: Patient is a 22 year old male initially seen in [facility] emergency room having been brought in by the police because of an altercation with his father. Patient was disorganized, labile, appeared to be responding to internal stimuli, laughing inappropriately and sexually preoccupied. He was last hospitalized at [facility] involuntarily for 2 months and has been home and noncompliant with medication since. He signed voluntarily into the unit. Laboratory Data: Laboratory Tests 09/26/17 09/26/17 09/26/17 21:50 21:50 21:50 WBC 9.1 D RBC 4.89 Hgb 15.8 Hct 46.0 MCV 94.1 D MCH 32.3 MCHC 34.3 RDW 13.5 Plt Count 303 MPV 10.2 Gran % 38.2 L Lymph % (Auto) 48.4 H [place] % (Auto) 10.1 H Eos % (Auto) 3.1 Baso % (Auto) 0.2 Gran # 3.48 Lymph # (Auto) 4.4 H [place] # (Auto) 0.9 H Eos # (Auto) 0.3 Baso # (Auto) 0.02 Sodium 140 Potassium 4.7 Chloride 102 Carbon Dioxide 28 Anion Gap 15 BUN 12 Creatinine 1.0 Est GFR ( Amer) > 60 Est GFR (Non-Af Amer) > 60 Random Glucose 93 Fasting Glucose Calcium 10.4 Total Bilirubin 0.6 AST 33 ALT 36 Alkaline Phosphatase 55 Total Protein 8.0 Albumin 4.5 Globulin 3.5 Albumin/Globulin Ratio 1.3 Triglycerides Cholesterol LDL Cholesterol Direct HDL Cholesterol TSH 3rd Generation Urine Color Urine Appearance Urine pH Ur Specific [place] Urine Protein Urine Glucose (UA) Urine Ketones Urine Blood Urine Nitrate Urine Bilirubin Urine Urobilinogen Ur Leukocyte Esterase Salicylates < 1 L Urine Opiates Screen Urine Methadone Screen Acetaminophen < 10.0 L Ur Barbiturates Screen Valproic Acid Ur Phencyclidine Scrn Ur Amphetamines Screen U Benzodiazepines Scrn U Oth Cocaine Metabols U Cannabinoids Screen Alcohol, Quantitative RPR 09/26/17 09/27/17 09/27/17 21:50 00:00 00:00 WBC RBC Hgb Hct MCV MCH MCHC RDW Plt Count MPV Gran % Lymph % (Auto) [place] % (Auto) Eos % (Auto) Baso % (Auto) Gran # Lymph # (Auto) [place] # (Auto) Eos # (Auto) Baso # (Auto) Sodium Potassium Chloride Carbon Dioxide Anion Gap BUN Creatinine Est GFR ( Amer) Est GFR (Non-Af Amer) Random Glucose Fasting Glucose Calcium Total Bilirubin AST ALT Alkaline Phosphatase Total Protein Albumin Globulin Albumin/Globulin Ratio Triglycerides Cholesterol LDL Cholesterol Direct HDL Cholesterol TSH 3rd Generation Urine Color Yellow Urine Appearance Clear Urine pH 6.0 Ur Specific [place] 1.020 Urine Protein Negative Urine Glucose (UA) Negative Urine Ketones Negative Urine Blood Negative Urine Nitrate Negative Urine Bilirubin Negative Urine Urobilinogen 0.2 Ur Leukocyte Esterase Negative Salicylates Urine Opiates Screen Negative Urine Methadone Screen Negative Acetaminophen Ur Barbiturates Screen Negative Valproic Acid Ur Phencyclidine Scrn Negative Ur Amphetamines Screen Negative U Benzodiazepines Scrn Negative U Oth Cocaine Metabols Negative U Cannabinoids Screen Negative Alcohol, Quantitative < 10 RPR 09/27/17 09/27/17 09/27/17 07:30 07:30 07:30 WBC RBC Hgb Hct MCV MCH MCHC RDW Plt Count MPV Gran % Lymph % (Auto) [place] % (Auto) Eos % (Auto) Baso % (Auto) Gran # Lymph # (Auto) [place] # (Auto) Eos # (Auto) Baso # (Auto) Sodium Potassium Chloride Carbon Dioxide Anion Gap BUN Creatinine Est GFR ( Amer) Est GFR (Non-Af Amer) Random Glucose Fasting Glucose 90 Calcium Total Bilirubin AST ALT Alkaline Phosphatase Total Protein Albumin Globulin Albumin/Globulin Ratio Triglycerides 87 Cholesterol 132 LDL Cholesterol Direct 82 HDL Cholesterol 36 TSH 3rd Generation 0.75 Urine Color Urine Appearance Urine pH Ur Specific [place] Urine Protein Urine Glucose (UA) Urine Ketones Urine Blood Urine Nitrate Urine Bilirubin Urine Urobilinogen Ur Leukocyte Esterase Salicylates Urine Opiates Screen Urine Methadone Screen Acetaminophen Ur Barbiturates Screen Valproic Acid Ur Phencyclidine Scrn Ur Amphetamines Screen U Benzodiazepines Scrn U Oth Cocaine Metabols U Cannabinoids Screen Alcohol, Quantitative RPR Nonreactive 10/01/17 07:30 WBC RBC Hgb Hct MCV MCH MCHC RDW Plt Count MPV Gran % Lymph % (Auto) [place] % (Auto) Eos % (Auto) Baso % (Auto) Gran # Lymph # (Auto) [place] # (Auto) Eos # (Auto) Baso # (Auto) Sodium Potassium Chloride Carbon Dioxide Anion Gap BUN Creatinine Est GFR ( Amer) Est GFR (Non-Af Amer) Random Glucose Fasting Glucose Calcium Total Bilirubin AST ALT Alkaline Phosphatase Total Protein Albumin Globulin Albumin/Globulin Ratio Triglycerides Cholesterol LDL Cholesterol Direct HDL Cholesterol TSH 3rd Generation Urine Color Urine Appearance Urine pH Ur Specific [place] Urine Protein Urine Glucose (UA) Urine Ketones Urine Blood Urine Nitrate Urine Bilirubin Urine Urobilinogen Ur Leukocyte Esterase Salicylates Urine Opiates Screen Urine Methadone Screen Acetaminophen Ur Barbiturates Screen Valproic Acid 55 Ur Phencyclidine Scrn Ur Amphetamines Screen U Benzodiazepines Scrn U Oth Cocaine Metabols U Cannabinoids Screen Alcohol, Quantitative RPR Temp Pulse Resp BP Pulse Ox 97.6 F 68 20 116/62 99 09/30/17 06:59 10/03/17 16:00 09/30/17 06:59 10/03/17 16:00 09/30/17 16:00 Consultations:: List each consultation separately and include: 1. Reason for request. 2. Findings. 3. Follow-up Consultations: Medical consult per Dr Hull reviewed thank you Summary of Hospital Course include:: 1. Description of specific treatment plan utilized for patients during their course of treatmen. 2. Summarize the time- course for resolution of acute symptoms and/or regressed behaviors. 3. Describe issues identified and worked on during hospitalization. 4. Describe medication utilized. 5. Describe medical problems identified and treated. 6. Reassessment of suicide risk Summary of Hospital Course: Patient is a 22 year old single male of average height and slim of build, neatly groomed and appearing his stated age. He has a long history of mental illness starting at age 14 with many hospitalizations and non compliance with follow up care. He lives with his father and is disabled due to his mental illness. Patient indicates that he "hangs out all day smoking cigs" and he came to the hospital because people are scared of him. He does not take medication when he is out of the hospital because the medication "takes away my juice" and he does not like the way he feels on medication. He wants Klonopin and Ambien only, but agrees to take Risperdal and Depakote if he can have Ambien for sleep. When he came up to the unit was quite difficult and declining medication but this morning is more cooperative and has taken both the Risperdal and the Depakote. He was overtly suspicious during treatment team feeling that the child welfare social worker was "trying to put me in maximum security. I know what she is doing. You're writing everything good about me and she is writing everything bad about me." Also claimed he could "make this room dark right now". Reality testing and insight extremely poor. Social and Developmental History: Patient indicates his childhood was happy, that his parents were together and he is #3 of 3 siblings. He is close to his brother but feels his brother and his father are closer because his father loves his brother better. He reports he was "very good" in school and feels that "people were impressed with me". He was always in special ed, is unsure of his classification but enjoyed 1:1 attention. He dropped out of high school and got his GED at some point. 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 His mental illness started at 14 after he smoked some weed dipped in PCP and ended up hospitalized for the first time. His mom when he was 15 due to sepsis "from smoking too much". Hospital Course: Patient was at times cooperative on the unit in regards to taking medication. He spent time outside of his room attending groups but due to his symptoms was unable to tolerate the contact. He was irritable, inappropriate, sexually preoccupied, and ultimately decided he wanted to go home and signed a 48 hour notice with the awareness that he would be screened as a result as we were not comfortable discharging him with the severity of his symptoms. He was screened and placed under involuntary commitment and stayed on the unit until a bed was available and he was transferred to [facility]. - Diagnosis (1) Bipolar disorder Status: Acute Priority: High - Final Diagnosis (DSM 5) Condition upon Discharge: GOOD DSM 5: Schizoaffective Disorder, BiPolar Type, Severe, Hypomanic Disposition: DISCHARGE TO PSYCH HOSPITAL Follow-up Treatment Plan: Milieu/structure/supportive therapy Medical consult appreciated, see medical team note for more detailed info SW consultation for discharge plan and social issues Med management Family involvement Follow up on labs Will monitor closely evaluation for d/c planning Pt was educated about risk/benefits and alternatives of medications, coping strategies (safety plan, suicide prevention), relapse prevention, importance of follow up with psychiatrist and therapist, stay away from drugs/alcohol/smoking Discharge Medications: Depakote DR 750mg po AM and HS for mood lability Risperdal 2mg one po AM and HS to be tapered up for psychosis Ambien 10mg one po HS for sleep PRNs of Ativan, Benedryl, and Haldol po and IM for agitation No prescriptions were given as patient was discharged under involuntary commitment status to [facility] as patient's symptoms could n ot be managed in the current setting as patient required a higher level of care and longer term treatment. - Smoking Cessation Smoking Cessation Medication prescribed: Yes - Antipsychotic Medications Pt discharged on 2 or more routine antipsychotic medications: No
== END 2017-10-03 17:20 | DRG 430 ==
LOC: ED 21:37 → ERH 09-27 00:59 → PSYC 09-27 01:36
PROVIDERS: ADMIT Psychiatry & Neurology Psychiatry; ATTEND Psychiatry & Neurology Psychiatry
DX: F25.0 Schizoaffective disorder, bipolar type (principal); F81.9 Developmental disorder of scholastic skills, unspecified; F19.10 Other psychoactive substance abuse, uncomplicated; G47.00 Insomnia, unspecified; Z91.14 Patient's other noncompliance with medication regimen; Z72.0 Tobacco use

== ENCOUNTER 2018-09-04 13:35 | Emergency (ER) | payer MEDICAID ==
[2018-09-04 13:36] VITALS: BMI 27.3
[2018-09-04 15:18] VITALS: BP 115/82; PULSE 98; RESP 18; TEMP 98.2; O2SAT 98
--- NOTE | 2018-09-04 15:34 | ED PDOC ---
Arrival/HPI - General Chief Complaint: Med Refill Historian: Patient - History of Present Illness Narrative History of Present Illness (Text): 09/04/18 15:26 23 y/o male, pmh including schizoaffective/bipolar/depression, nkda, c/o out of the medication for his medication. Pt. that he is on the depokote 750mg po bid, haldol 10mg po bid, cogentin 1mg po qd. Pt. has no homicidal/suicidal ideation, no auditory or visual hallucination, no night sweat, no dizziness, no change in vision, no other medical or psychological complaints. Past Medical History - Provider Review Nursing Documentation Reviewed: Yes - Tetanus Immunization Tetanus Immunization: Unknown - Cardiac Hx Cardiac Disorders: No Hx Hypertension: No - Pulmonary Hx Tuberculosis: No - Neurological HX Cerebrovascular Accident: No Hx Seizures: No - HEENT Hx HEENT Disorder: No - Renal Hx Renal Disorder: No - Endocrine/Metabolic Hx Endocrine Disorders: No - Hematological/Oncological Hx Cancer: No - Integumentary Hx Dermatological Disorder: No - Musculoskeletal/Rheumatological Hx Musculoskeletal Disorders: No Hx Falls: No - Gastrointestinal Hx Gastrointestinal Disorders: No - Genitourinary/Gynecological Hx Sexually Transmitted Diseases: No - Psychiatric Hx Psychophysiologic Disorder: Yes Hx Bipolar Disorder: Yes Hx Schizophrenia: Yes Hx Substance Use: No - Anesthesia Hx Anesthesia: No Hx Anesthesia Reactions: No Hx Malignant Hyperthermia: No Family/Social History - Physician Review Nursing Documentation Reviewed: Yes Family/Social History: Unknown Family HX Smoking Status: Heavy Smoker > 10 Cigarettes Daily Hx Alcohol Use: No Hx Substance Use: No Allergies/Home Meds Allergies/Adverse Reactions: Allergies No Known Allergies Allergy (Verified 09/27/17 02:53) Home Medications: Home Meds Medication Instructions Recorded Confirmed No Known Home Med 09/29/17 09/29/17 Review of Systems - Review of Systems Constitutional: absent: Fatigue, Fevers Eyes: absent: Vision Changes ENT: absent: Hearing Changes Respiratory: absent: SOB, Cough Cardiovascular: absent: Chest Pain Gastrointestinal: absent: Abdominal Pain, Diarrhea, Nausea, Vomiting Musculoskeletal: absent: Arthralgias, Back Pain Skin: absent: Rash, Pruritis, Skin Lesions Neurological: absent: Headache Psychiatric: absent: Anxiety, Depression, Suicidal Ideation Physical Exam Vital Signs Reviewed: Yes Vital Signs Temp Pulse Resp BP Pulse Ox 09/04/18 13:36 98.2 F 98 H 18 115/82 98 Temperature: Afebrile Blood Pressure: Normal Pulse: Regular Respiratory Rate: Normal Appearance: Positive for: Well-Appearing, Non-Toxic, Comfortable Pain Distress: None Mental Status: Positive for: Alert and Oriented X 3 - Systems Exam Head: Present: Atraumatic, Normocephalic Pupils: Present: PERRL Extroacular Muscles: Present: EOMI Conjunctiva: Present: Normal Mouth: Present: Moist Mucous Membranes Neck: Present: Normal Range of Motion Respiratory/Chest: Present: Clear to Auscultation, Good Air Exchange. No: Respiratory Distress, Accessory Muscle Use Cardiovascular: Present: Regular Rate and Rhythm, Normal S1, S2. No: Murmurs Abdomen: No: Tenderness, Distention, Peritoneal Signs Back: Present: Normal Inspection Upper Extremity: Present: Normal Inspection. No: Cyanosis, Edema Lower Extremity: Present: Normal Inspection. No: Edema Neurological: Present: GCS=15, CN II-XII Intact, Speech Normal Skin: Present: Warm, Dry, Normal Color. No: Rashes Lymphatic: No: Cervical Adenopathy, Axillary Adenopathy Psychiatric: Present: Alert, Oriented x 3, Normal Insight, Normal Concentration Medical Decision Making ED Course and Treatment: 09/04/18 15:59 -PES joaquind for prescription refill. 09/04/18 16:20 -GISSELLE blanca came to evaluate the patient but the patient eloped from the ER. - PA / LOCOMOTIVE OILER / Resident Statement MD/DO has reviewed & agrees with the documentation as recorded. Disposition/Present on Arrival - Present on Arrival Any Indicators Present on Arrival: No History of DVT/PE: No History of Uncontrolled Diabetes: No Urinary Catheter: No History of Decub. Ulcer: No History Surgical Site Infection Following: None - Disposition Have Diagnosis and Disposition been Completed?: Yes Diagnosis: Medication refill Disposition: ELOPEMENT - ER ONLY Disposition Time: 16:20 Condition: GOOD Referrals: Zenaida Man APN [Primary Care Provider] - Follow up with primary Forms: [employer] (Persian)
== END 2018-09-04 16:29 | disposition left against medical advice (07) ==
LOC: ED 13:35
DX: Z76.0 Encounter for issue of repeat prescription (principal); F20.9 Schizophrenia, unspecified; F17.210 Nicotine dependence, cigarettes, uncomplicated

== ENCOUNTER 2018-09-28 13:51 | Emergency (ER) | payer MEDICAID ==
[2018-09-28 13:51] VITALS: BMI 27.3
--- NOTE | 2018-09-28 14:19 | ED PDOC ---
Arrival/HPI - General Historian: Patient - History of Present Illness Narrative History of Present Illness (Text): 09/28/18 14:18 23 y/o male, no significant pmh, nkda, c/o rt. lower molar pain x 3 weeks. Aching pain, aggravated by chewing, on and off, no night sweat, no dizziness, no change in vision, no tongue or chin swelling, no difficulty opening or closing mouth, no rash, no other medical or psychological complaints. <Phil Chin - Last Filed: 09/28/18 15:33> <Hever Philip - Last Filed: 09/28/18 16:02> - General Time Seen by Provider: 09/28/18 14:18 Past Medical History - Provider Review Nursing Documentation Reviewed: Yes - Tetanus Immunization Tetanus Immunization: Unknown - Cardiac Hx Cardiac Disorders: No Hx Hypertension: No - Pulmonary Hx Tuberculosis: No - Neurological HX Cerebrovascular Accident: No Hx Seizures: No - HEENT Hx HEENT Disorder: No - Renal Hx Renal Disorder: No - Endocrine/Metabolic Hx Endocrine Disorders: No - Hematological/Oncological Hx Cancer: No - Integumentary Hx Dermatological Disorder: No - Musculoskeletal/Rheumatological Hx Musculoskeletal Disorders: No Hx Falls: No - Gastrointestinal Hx Gastrointestinal Disorders: No - Genitourinary/Gynecological Hx Sexually Transmitted Diseases: No - Psychiatric Hx Psychophysiologic Disorder: Yes Hx Bipolar Disorder: Yes Hx Schizophrenia: Yes Hx Substance Use: No - Anesthesia Hx Anesthesia: No Hx Anesthesia Reactions: No Hx Malignant Hyperthermia: No <Phil Chin - Last Filed: 09/28/18 15:33> Family/Social History - Physician Review Nursing Documentation Reviewed: Yes Family/Social History: Unknown Family HX Smoking Status: Heavy Smoker > 10 Cigarettes Daily Hx Alcohol Use: No Hx Substance Use: No <Phil Chin - Last Filed: 09/28/18 15:33> Allergies/Home Meds <Phil Chin - Last Filed: 09/28/18 15:33> <Hever Philip - Last Filed: 09/28/18 16:02> Allergies/Adverse Reactions: Allergies No Known Allergies Allergy (Verified 09/27/17 02:53) Review of Systems - Review of Systems Constitutional: absent: Fatigue, Fevers Eyes: absent: Vision Changes ENT: Other (dental pain). absent: Hearing Changes Respiratory: absent: SOB, Cough Cardiovascular: absent: Chest Pain Gastrointestinal: absent: Abdominal Pain, Nausea, Vomiting Musculoskeletal: absent: Arthralgias, Back Pain Skin: absent: Rash, Pruritis, Other Neurological: absent: Headache, Dizziness Psychiatric: absent: Anxiety, Depression, Suicidal Ideation <Phil Chin - Last Filed: 09/28/18 15:33> Physical Exam - Systems Exam Head: Present: Atraumatic, Normocephalic Pupils: Present: PERRL Extroacular Muscles: Present: EOMI Conjunctiva: Present: Normal Ears: Present: NORMAL TM, Normal Canal. No: Erythema Mouth: Present: Moist Mucous Membranes, Normal Lips, Normal Tounge, Other (Rt. lower molar noted to have dental caries and filling defect, no gingivitis or gingival abscess, no tongue or chin swelling, no facial swelling. ). No: Drooling, Trismus Pharnyx: Present: Normal. No: ERYTHEMA, EXUDATE, TONSILS ENLARGED Nose (External): Present: Atraumatic. No: Abrasion, Contusion, Laceration Nose (Internal): Present: Normal Inspection, No Active Bleeding. No: Rhinorr hea, Septal Hematoma, Epistaxis Neck: Present: Normal Range of Motion Respiratory/Chest: Present: Clear to Auscultation, Good Air Exchange. No: Respi ratory Distress, Accessory Muscle Use Cardiovascular: Present: Regular Rate and Rhythm, Normal S1, S2. No: Murmurs Abdomen: No: Tenderness, Distention, Peritoneal Signs Back: Present: Normal Inspection Upper Extremity: Present: Normal Inspection. No: Cyanosis, Edema Lower Extremity: Present: Normal Inspection. No: Edema Neurological: Present: GCS=15, CN II-XII Intact, Speech Normal Skin: Present: Warm, Dry, Normal Color. No: Rashes Psychiatric: Present: Alert, Oriented x 3, Normal Insight, Normal Concentration <Phil Chin - Last Filed: 09/28/18 15:33> Vital Signs Temp Pulse Resp BP Pulse Ox 09/28/18 15:40 89 18 122/70 100 09/28/18 13:51 98.1 F 96 H 18 132/88 97 <Hever Philip - Last Filed: 09/28/18 16:02> Medical Decision Making ED Course and Treatment: 09/28/18 14:24 -I offered the dental block but the patient refused, request po analgesic -Amoxicillin,motrin and percocet -Observe and reassess -Pt. feels better, request to be discharged home. -Discharge home with augmentin, duexis, follow up with your own pmd and dentist within 2 days, return to the ER for any new or worsening signs or symptoms. <Phil Chin - Last Filed: 09/28/18 15:33> - Medication Orders Current Medication Orders: Discontinued Medications Amoxicillin/Clavulanate Potassium (Augmentin 875 Mg-125 Mg Tab) 1 tab PO STAT STA; Protocol Stop: 09/28/18 14:25 Last Admin: 09/28/18 15:19 Dose: 1 tab Ibuprofen (Motrin Tab) 600 mg PO STAT STA Stop: 09/28/18 14:25 Last Admin: 09/28/18 15:19 Dose: 600 mg MAR Pain/Vitals Document 09/28/18 15:19 EQ (Rec: 09/28/18 15:19 EQ [id number]) Pain Reassessment Is This A Pain ReAssessment? No Sleep Is patient sleeping during reassessment? No Presence of Pain Presence of Pain Yes Oxycodone/Acetaminophen (Percocet 5/325 Mg Tab) 1 tab PO STAT STA Stop: 09/28/18 14:25 Last Admin: 09/28/18 15:18 Dose: 1 tab MAR Pain Assessment Document 09/28/18 15:18 EQ (Rec: 09/28/18 15:19 EQ [id number]) Pain Reassessment Is this a pain reassessment? No Sleep Is patient sleeping during reassessment? No Presence of Pain Presence of Pain Yes <Hever Philip - Last Filed: 09/28/18 16:02> - PA / HAND [employer] / Resident Statement ANGUS has reviewed & agrees with the documentation as recorded. <Phil Chin - Last Filed: 09/28/18 15:33> - PA / HAND [employer]NEL [employer]ATER / Resident Statement ANGUS has reviewed & agrees with the documentation as recorded. <Hever Philip - Last Filed: 09/28/18 16:02> Disposition/Present on Arrival - Present on Arrival Any Indicators Present on Arrival: No History of DVT/PE: No History of Uncontrolled Diabetes: No Urinary Catheter: No History of Decub. Ulcer: No History Surgical Site Infection Following: None - Disposition Have Diagnosis and Disposition been Completed?: Yes Disposition Time: 14:24 Patient Plan: Discharge <Phil Chin - Last Filed: 09/28/18 15:33> <Hever Philip - Last Filed: 09/28/18 16:02> - Disposition Diagnosis: Dental caries, Pain, dental Disposition: HOME/ ROUTINE Condition: IMPROVED Additional Instructions: -Discharge home with augmentin, duexis, follow up with your own pmd and dentist within 2 days, return to the ER for any new or worsening signs or symptoms. Prescriptions: Amoxicillin/Clavulanate [Augmentin 875 MG-125 MG] 1 tab PO BID #20 tab Ibuprofen/Famotidine [Duexis 26.6 mg-800 mg] 1 tab PO TID #21 tab Referrals: PCP,NO [Primary Care Provider] - Follow up with primary [facility] [place] - Follow up with primary Forms: WORK NOTE
[2018-09-28 14:22] VITALS: RESP 18; TEMP 98.1
[2018-09-28] MEDS ORDERED: Amoxicillin-Clav 875-125 mg Tab PO STA (14:24)
[2018-09-28] MEDS ORDERED: Oxycodone/Acetaminophen 5/325 mg Tab PO STA (14:24)
[2018-09-28 15:41] VITALS: BP 122/70; PULSE 89; O2SAT 100
== END 2018-09-28 15:42 | disposition home or self-care (01) ==
LOC: ED 13:51
DX: K02.9 Dental caries, unspecified (principal)